=== PATIENT | male | born 1995 | race Caucasian/White ===

== ENCOUNTER 2023-05-08 18:26 | Emergency (ER) | payer MEDICAID, SELFPAY ==
[2023-05-08 18:56] VITALS: BP 133/87; PULSE 79; RESP 18; TEMP 36.9; O2SAT 98; BMI 25.7
--- NOTE | 2023-05-08 19:35 | ED_ITS ---
HPI - General Adult General Chief complaint: Nausea/Vomiting Stated complaint: vomiting, heart pounding Time Seen by Provider: 05/08/23 19:27 Source: patient Mode of arrival: ambulatory Limitations: no limitations History of Present Illness HPI narrative: 28-year-old male presenting today with concerns that he ?is dying?. Patient states that does have history of schizophrenia and he has been prescribed olanzapine. States that he has not been taking his medications for about 3 weeks and if that is been smoking marijuana. He states that he wakes up every morning with a sour taste in his mouth and vomits 1st thing in the morning. He does not like smoking marijuana but continues to do so in hopes that ?things will change? when asked what that means he states that he would like to tolerate marijuana better. He denies any thoughts of self-harm, harming others. He denies any visual or auditory hallucinations. He states that life is generally going really well. He states that he is finally working a full-time job for the 1st time in many years and he is enjoying it. He states that sleep has been difficult because he does have to get up at 3:00 a.m. in the morning to get to work. This is still an ongoing adjustment for him. He comes in today to make sure that he is okay to make sure that the vomiting does not mean that the something serious going on with him. He denies chest or abdominal pain. No fevers or chills. No body aches. No skin rashes. He denies vomiting throughout the day. Appetite has been good. He denies any weight loss. No skin or hair changes. Related Data Home Medications Medication Instructions Recorded Confirmed No Known Home Medications 05/08/23 05/08/23 Allergies Allergy/AdvReac Type Severity Reaction Status Date / Time No Known Drug Allergies Allergy Verified 05/08/23 19:00 Review of Systems Status of ROS: Reports: 10 or more systems reviewed and unremarkable except as noted in History and below PFSH PFS Social History Non-prescribed substance use: denies use Non-prescribed substance use details: quit three weeks ago. Exam Narrative: Exam Narrative: Well-nourished well-developed patient in no acute distress. Alert and oriented. Answers questions appropriately. Mood is appropriate, affect is slightly flat. Thoughts are goal oriented and rational. No tangential or magical thinking noted. Patient speaks in full sentences without needing to catch his breath. He is well groomed. HEENT: Normocephalic atraumatic. Pupils are equally round reactive to light. Extraocular muscles are intact. Conjunctivae are moist without any icterus noted. Moist mucous membranes. Posterior pharynx is normal. Neck is soft without any lymphadenopathy or thyromegaly. No masses are appreciated. Appears to have good oral hygiene. Cardiovascular: Heart is regular rate and rhythm S1 and S2 are present without any murmurs. Lungs: Clear to auscultation bilaterally no wheezes rhonchi or rales are appreciated. Patient takes deep breaths without any discomfort. Abdomen: Soft and nontender nondistended with normal bowel sounds. Skin: Visible skin Appears well perfused, no obvious rashes. Const: Vital Signs, click to edit/add: Vital Signs - 24 hr 05/08/23 18:56 Temperature 98.5 F Pulse Rate [Pulse Oximeter] 79 Respiratory Rate 18 Blood Pressure [Ri t Upper Arm] 133/87 Pulse Oximetry 98 Oxygen Delivery Me thod Room Air Course Vital Signs Vital signs: Initial Vital Signs Temperature 98.5 F 05/08/23 18:56 Temperature Source Temporal Artery Scan 05/08/23 18:56 Pulse Rate 79 05/08/23 18:56 Respiratory Rate 18 05/08/23 18:56 Blood Pressure 133/87 05/08/23 18:56 Blood Pressure Mean 102 05/08/23 18:56 Blood Pressure Position Sitting 05/08/23 18:56 Pulse Oximetry 98 05/08/23 18:56 Oxygen Delivery Method Room Air 05/08/23 18:56 Vital Signs Temperature 98.5 F 05/08/23 18:56 Pulse Rate 79 05/08/23 18:56 Respiratory Rate 18 05/08/23 18:56 Blood Pressure 133/87 05/08/23 18:56 Pulse Oximetry 98 05/08/23 18:56 Oxygen Delivery Method Room Air 05/08/23 18:56 Temperature 98.5 F 05/08/23 18:56 Pulse Rate 79 05/08/23 18:56 Respiratory Rate 18 05/08/23 18:56 Blood Pressure 133/87 05/08/23 18:56 Pulse Oximetry 98 05/08/23 18:56 Oxygen Delivery Method Room Air 05/08/23 18:56 Medical Decision Making MDM Narrative Medical decision making narrative: 28-year-old male vital E stable, with vomiting 1st thing in the morning. We discussed taking a famotidine before bed to see if this helps. We discussed abstaining from marijuana use which he plans on. We discussed adding back in his olanzapine. Patient would like to follow up with primary care provider before doing that. He understands that should he start having any hallucinations or thoughts of self-harm or harming others he should return to the ER right away, again he assures me that he is feeling better than he has in a long time mentally given his employment situation. Discharge Plan Discharge Clinical Impression: Vomiting Patient Disposition: Home, Self-Care Condition: Stable Additional Instructions: I recommend you stop using marijuana and start back on your prescribed medicatio ns. Follow-up with your primary care provider this coming week to have further discussion about your medications if needed. Further vomiting recommended start taking a Famotidine. You can purchase these medications [id number]. Take 1 tablet before bed. Return to the ER if you have any feelings of harming yourself or others or if you feel unsafe at home. Prescriptions: No Action No Known Home Medications Stand Alone Forms: [employer] Info Instructions
== END 2023-05-08 20:00 | disposition home or self-care (01) ==
LOC: ED 19:59
PROVIDERS: Emergency Provider Family Medicine
DX: R11.10 Vomiting, unspecified (principal)
CPT/HCPCS: 99283